=== PATIENT | female | born 1985 | race Hispanic/Latino ===

== ENCOUNTER 2017-06-27 13:19 | Outpatient (CLI) | payer OTHER ==
--- NOTE | 2017-06-27 19:33 | ULT ---
OB ULTRASOUND: Date: 06-27-17 History: Evaluate size and dates. FINDINGS: There is a single intrauterine gestation in breech presentation. Cardiac doppler demonstrates h eart tones with a heart rate of 130 beats/minute. The placenta is located anteriorly without ev idence of placenta previa. Subjectively, there is a normal amount of amniotic fluid. There is also a normal amniotic fluid index measuring 15.2 cm. Cervical length measure 3.3 cm as measured on transabd ominal imaging. Measurements: BPD 5.27 cm 22 weeks HC 20.37 cm 22 weeks 3 days AC 16.22 cm 21 weeks 2 days FL 3.64 cm 21 weeks 4 days The estimated gestational age by ultrasound is 21 weeks 6 days with an ROB on 11-01-17. Gestational age by last menstrual period is 22 weeks. The estimated weight by ultrasound is 432 grams (15 ounces). This represents 23 percentile for weight. The cerebellum, visualized portions of the spine, four chamber heart, stomach, bilateral kidney s, urinary bladder, and cord insertion demonstrate a normal sonographic appearance. A 3 vessel cord i s not visualized on this exam although there is question of a 3 vessel cord. No definite anomal ies are seen. IMPRESSION: 1. Single intrauterine gestation in breech presentation with tones documented. 2. Estimated gestational age by ultrasound is 21 weeks 6 days, ROB on 11-01-17. 3. Estimated weight is 432 grams (15 ounces). 4. Amniotic fluid index is 15.7 cm. POS: [facility]
== END 2017-06-27 13:20 | disposition home or self-care (01) ==
LOC: SCSULT 13:19
PROVIDERS: ATTEND Nurse Practitioner
DX: Z34.02 Encounter for supervision of normal first pregnancy, second trimester (principal); O32.1XX0 Maternal care for breech presentation, not applicable or unspecified; Z3A.21 21 weeks gestation of pregnancy
CPT/HCPCS: 76805

== ENCOUNTER 2017-07-10 18:54 | Observation (INO) | payer OTHER ==
[2017-07-10 19:25] VITALS: BMI 26.6
[2017-07-10] MEDS ORDERED: Ondansetron HCl/PF 4 MG/2 ML Vial ONE (19:57)
[2017-07-10 20:21] LABS: #Eosinphils 0.1 thou/uL (0.0-0.7); #Lymphocytes 1.2 thou/uL (1.20-3.40); #Monocytes 0.3 thou/uL (0.11-0.59); #Neutrophils 10.9 thou/uL (1.40-6.50); %Basophils 0.3 % (0.0-1.0); %Eosinophils 0.4 % (0.0-10.0); %Lymphocytes 9.7 % (21.0-51.0); %Monocytes 2.7 % (0.0-10.0); %Neutrophils 86.9 % (42.0-75.0); Mean Corpuscular HGB CONC 33.6 g/dL (32.0-36.0); Mean Corpuscular Hemoglobin 30.8 pg (27.0-31.0); Mean Corpuscular Volume 91.8 fl (81.0-99.0); Mean Platelet Volume 8.2 fL (7.4-10.4); Platelet Count 233 thou/uL (130-400); White Blood Cell (WBC) Count 12.5 thou/uL (4.8-10.8)
[2017-07-10] MEDS ORDERED: Ondansetron HCl/PF 4 MG/2 ML Vial IVP SCH (20:30)
[2017-07-10 20:41] LABS: ALT (SGPT) 22 U/L (8-55); AST (SGOT) 22 U/L (5-34); Albumin 3.7 g/dL (3.5-5.0); Alkaline Phosphatase 84 U/L (40-150); Anion Gap 17 mmol/L (10-20); BUN (Urea Nitrogen) 8 mg/dL (7.0-18.7); Bilirubin, Total 0.3 mg/dL (0.2-1.2); Calc. Creatinine Clearance 155 mL/min (70-130); Calcium 9.2 mg/dL (7.8-10.44); Carbon Dioxide 20 mmol/L (22-29); Chloride 103 mmol/L (98-107); Estimated GFR-MDRD Greater than 90; Globulin 3.5 g/dL (2.4-3.5); Glucose 98 mg/dL (70-105); Lipase 18 U/L (8-78); Potassium 3.9 mmol/L (3.5-5.1); Protein, Total 7.2 g/dL (6.0-8.3); Sodium 136 mmol/L (136-145)
[2017-07-10] MEDS ORDERED: Ondansetron HCl/PF 4 MG/2 ML Vial IVP PRN (21:33)
[2017-07-10] MEDS ORDERED: Lactated Ringer's 1,000 ML IV SCH (22:00)
--- NOTE | 2017-07-10 22:54 | ULT ---
GALLBLADDER ULTRASOUND: Date: 07/10/17 INDICATION: Pain. FINDINGS: There is evidence of cholelithiasis and a distended gallbladder. The gallbladder wall is within carlton l limits of size. Common duct is mildly prominent at 6.0 mm. Incidental note of mild prominence of ri ght renal collecting system. Prado's sign reported as positive. No focal hepatic lesion. IMPRESSION: 1. Cholelithiasis. 2. Mild prominence of right renal collecting system. POS: [facility]
[2017-07-11 05:56] LABS: #Lymphocytes 1.7 thou/uL (1.20-3.40); #Monocytes 0.4 thou/uL (0.11-0.59); #Neutrophils 10.1 thou/uL (1.40-6.50); %Basophils 0.1 % (0.0-1.0); %Eosinophils 0.1 % (0.0-10.0); %Lymphocytes 13.7 % (21.0-51.0); %Monocytes 3.1 % (0.0-10.0); %Neutrophils 83.1 % (42.0-75.0); Hemoglobin 10.1 g/dL (12.0-16.0); Mean Corpuscular HGB CONC 32.9 g/dL (32.0-36.0); Mean Corpuscular Hemoglobin 30.2 pg (27.0-31.0); Mean Corpuscular Volume 91.7 fl (81.0-99.0); Mean Platelet Volume 7.8 fL (7.4-10.4); Platelet Count 231 thou/uL (130-400); RBC Distribution Width 12.8 % (11.5-14.5); Red Blood Cell (RBC) Count 3.35 mill/uL (4.20-5.40); White Blood Cell (WBC) Count 12.1 thou/uL (4.8-10.8)
[2017-07-11 06:18] LABS: ALT (SGPT) 20 U/L (8-55); AST (SGOT) 18 U/L (5-34); Alkaline Phosphatase 66 U/L (40-150); Anion Gap 11 mmol/L (10-20); BUN (Urea Nitrogen) 6 mg/dL (7.0-18.7); Bilirubin, Total 0.5 mg/dL (0.2-1.2); Calc. Creatinine Clearance 163 mL/min (70-130); Calcium 8.8 mg/dL (7.8-10.44); Carbon Dioxide 24 mmol/L (22-29); Chloride 106 mmol/L (98-107); Estimated GFR-MDRD Greater than 90; Globulin 2.9 g/dL (2.4-3.5); Glucose 116 mg/dL (70-105); Lipase 8 U/L (8-78); Potassium 3.5 mmol/L (3.5-5.1); Protein, Total 5.9 g/dL (6.0-8.3); Sodium 137 mmol/L (136-145)
--- NOTE | 2017-07-11 08:09 | HP ---
DATE OF ENCOUNTER: 07/10/2017 PRIMARY OB: Reyes Smith M.D. CHIEF COMPLAINT: Abdominal pain. HISTORY OF PRESENT ILLNESS: The patient is a 31-year-old G1, P0 female with an intrauterine pregnanc y at 23 weeks and 6 days who is presenting to Labor and Delivery today after experiencing onset of ac [place] abdominal pain at 2:00. She was evaluated last month with a similar episode that was very transi ent and was diagnosed with gallstones. The patient reports that she had 2 beef tacos for lunch, prio r to onset of this abdominal pain, which is worse in the last couple of hours. The patient has vomit ed about 4 times. She denies any fever, any recent illness, headache, chest pain, shortness of breat h. She denies uterine contractions, vaginal bleeding, or leakage of fluid. PAST MEDICAL HISTORY: Significant for gallstones. PAST SURGICAL HISTORY: Negative. OBSTETRIC HISTORY: This is her first . ALLERGIES: No known drug allergies. OBSTETRICAL LABORATORY DATA: Unavailable. REVIEW OF SYSTEMS: Per HPI. PHYSICAL EXAMINATION: VITAL SIGNS: Blood pressure is 109/70, heart rate of 80, temperature 98.4. She is in significant pa in. GENERAL: She is alert and oriented, cooperative and pleasant to interact with. She appears to be in minimal to moderate distress. LUNGS: Clear to auscultation. HEART: Regular rate and rhythm. ABDOMEN: Soft. She does have tenderness to palpation in the epigastric region and the right upper q uadrant area. EXTREMITIES: Nontender, nonedematous. GENITOURINARY: Has been deferred. Heart tones are dopplered in the 130s. LABORATORY DATA: Shows a white count of 12.5, hemoglobin 12, hematocrit 35.7, platelets of 233,000. Sodium is 136, potassium of 3.9, BUN is 8, creatinine is 0.58, glucose is 98, total bilirubin is 0.3 . LFTs are within normal limits. Amylase and lipase are within normal limits. Amylase 49, lipase i s 18. A right upper quadrant ultrasound confirms the gallstones and sludge and describes a mildly pr ominent common bile duct at 6 mm on the final report, however, verbally was reported having a common bile duct at 7.5 mm. ASSESSMENT AND PLAN: The patient is a 31-year-old female with an intrauterine at 23 weeks and known gallstones with pain. She has been given IV fluids and Zofran for her nausea and vomiting. She has been given 2 mg of Stadol IV, which has helped her sleep and has much better pain control. All of her labs are within normal limits and has a mildly prominent common bile duct. I have talked to General Surgery by phone and have come up have admitted the patient in observation, repeat her la b work in the morning to see if anything develops suggesting obstruction. We will also evaluate her for pain. Her primary OB, Dr. Smith has been notified and will be here in the morning to see her Dr. Jeffrey was asked to be called if her pain persists or if she develops abnormal lab findings.
[2017-07-11 08:44] VITALS: BP 111/69; TEMP 98.4
--- NOTE | 2017-07-12 11:32 | DIS ---
DATE OF ADMISSION: 07/10/2017 DATE OF DISCHARGE: 07/11/2017 PRINCIPAL DIAGNOSES: 1. Cholelithiasis with biliary colic. 2. 23+ weeks' . OPERATIVE PROCEDURES: None. CONSULTANTS: General surgery. BRIEF HISTORY: This is a 31-year-old female G1, P0 at 23 weeks 6 days with acute onset righ t upper quadrant pain radiates to the epigastrium to the right flank with vomiting and nausea, no fev er, no jaundice, no bleeding. PHYSICAL EXAMINATION: On admission, afebrile/VS: Stable with right upper quadrant tenderness in the epigastric area. HOSPITAL COURSE: Ms. Chow was admitted to where she was observed overnight. She was hydrated, given IV analgesics for her pain. She was started on clear liquids the next day, which she tolerated without difficulty and her pain resolved. She was discharged in good condition on 017. DISCHARGE INSTRUCTIONS: 1. Activity: As tolerated. 2. Diet, low fat. 3. Follow up in 1 week at [facility] with Dr. Smith. ER precautions reviewed for fever, j aundice, intractable vomiting, and worsening right upper quadrant abdominal pain.
== END 2017-07-11 08:40 | disposition home or self-care (01) ==
LOC: L&D/OP 18:54 → 3SW 21:31
PROVIDERS: ADMIT Family Medicine; ATTEND Family Medicine
DX: O99.612 Diseases of the digestive system complicating pregnancy, second trimester (principal); K80.70 Calculus of gallbladder and bile duct without cholecystitis without obstruction; Z3A.23 23 weeks gestation of pregnancy
CPT/HCPCS: 36415; 76705; 80053; 82150; 83690; 85025; 96360; 96361; G0378; J0595; J2405

== ENCOUNTER 2019-06-13 05:41 | Inpatient (IN) | payer OTHER, SELFPAY ==
[2019-06-13 06:45] VITALS: TEMP 98.5; BMI 34.3
[2019-06-13] MEDS ORDERED: HYDROcodone/Acetaminophen 5/325 mg Tablet PO PRN (07:56)
[2019-06-13] MEDS ORDERED: NS / Oxytocin 40 units/1000ml 1,000 ML IV PRN (07:56)
[2019-06-13] MEDS ORDERED: Methylergonovine 0.2 MG/ML VIAL IM PRN (07:56)
[2019-06-13] MEDS ORDERED: hydrALAZINE 20 MG/ML VIAL SLOW IVP PRN (07:56)
[2019-06-13] MEDS ORDERED: Diphenoxylate HCl/Atropine Tablet PO PRN (07:56)
[2019-06-13] MEDS ORDERED: Ibuprofen 800 MG TAB PO PRN (07:56)
[2019-06-13] MEDS ORDERED: Carboprost 250 MCG/ML AMP IM PRN (07:56)
[2019-06-13] MEDS ORDERED: Promethazine HCl 25 MG/ML VIAL IM PRN ×2 (07:56→21:41)
[2019-06-13] MEDS ORDERED: Misoprostol 200 MCG TAB PR PRN (07:56)
[2019-06-13] MEDS ORDERED: Ondansetron PF 4 MG/2 ML Vial IVP PRN ×2 (07:56→21:41)
[2019-06-13] MEDS ORDERED: Lidocaine 1% (PF) 30 ML VIAL SC PRN (07:56)
[2019-06-13] MEDS ORDERED: Misoprostol 100 MCG TAB PO SCH (08:00)
[2019-06-13] MEDS: Lactated Ringer's 1,000 ML IV SCH ×3 (08:38→21:40)
[2019-06-13] MEDS: Misoprostol 200 MCG TAB PO SCH ×4 (08:39→22:05)
[2019-06-13 09:06] LABS: Hemoglobin 11.5 g/dL (12.0-16.0); Mean Corpuscular HGB CONC 33.4 g/dL (32.0-36.0); Mean Corpuscular Hemoglobin 30.3 pg (27.0-31.0); Mean Corpuscular Volume 90.7 fL (78.0-98.0); Mean Platelet Volume 9.3 fL (7.4-10.4); Platelet Count 223 thou/uL (130-400); RBC Distribution Width 12.1 % (11.5-14.5); Red Blood Cell (RBC) Count 3.79 mill/uL (4.20-5.40); White Blood Cell (WBC) Count 8.3 thou/uL (4.8-10.8)
[2019-06-13 09:47] LABS: Syphilis Antibody Nonreactive (Nonreactive); Syphilis Antibody Index 0.06 S/CO (<1.00 Non-Reactive)
[2019-06-13 09:48] LABS: HBSAg Index 0.22 S/CO (0-0.99); Hep B Surf Ag Non-Reactive S/CO (NonReactive)
[2019-06-13] MEDS: Butorphanol Tartrate 1 MG/ML VIAL SLOW IVP PRN ×2 (13:13→17:02)
[2019-06-13] MEDS ORDERED: Fentanyl 4 mcg/Bup 0.1% Cadd 100 ML ONE (20:10)
[2019-06-13] MEDS ORDERED: diphenhydrAMINE 50 MG/ML VIAL IVP PRN (21:41)
[2019-06-13] MEDS ORDERED: Acetaminophen 325 MG TAB PO PRN (21:41)
[2019-06-13] MEDS ORDERED: Lactated Ringer's 500 ML IV PRN (21:41)
[2019-06-13] MEDS ORDERED: Naloxone HCl 0.4 mg/ml Vial IVP PRN ×2 (21:41)
[2019-06-13] MEDS ORDERED: ePHEDrine/0.9% NaCl/PF SYRINGE 50 mg/10 ml SLOW IVP PRN (21:41)
[2019-06-13] MEDS ORDERED: Communication Order-Pharmacy FS SCH (21:45)
[2019-06-13] MEDS ORDERED: Fentanyl 4 mcg/Bupivacaine 0.1% Cassette 100 ML EPIDURAL SCH (21:45)
[2019-06-14] MEDS: Misoprostol 200 MCG TAB PO SCH (02:13)
[2019-06-14] MEDS ORDERED: Fentanyl 4 mcg/Bup 0.1% Cadd 100 ML ONE (04:44)
[2019-06-14] MEDS ORDERED: Misoprostol 200 MCG TAB ONE (07:19)
[2019-06-14] MEDS ORDERED: Acetaminophen 500 MG TAB PO SCH (08:30)
[2019-06-14] MEDS ORDERED: Docusate Calcium (SURFAK) 240 MG CAP PO SCH (09:00)
[2019-06-14] MEDS ORDERED: diphenhydrAMINE 25 MG CAP PO PRN (09:13)
[2019-06-14] MEDS ORDERED: Milk Of Magnesia 30 ML UDCUP PO PRN (09:13)
[2019-06-14] MEDS ORDERED: Ondansetron PF 4 MG/2 ML Vial IVP PRN (09:13)
[2019-06-14] MEDS ORDERED: HYDROcodone/Acetaminophen 5/325 mg Tablet PO PRN ×2 (09:13)
[2019-06-14] MEDS ORDERED: hydrALAZINE 20 MG/ML VIAL SLOW IVP PRN (09:13)
[2019-06-14] MEDS ORDERED: NS / Oxytocin 40 units/1000ml 1,000 ML IV SCH (09:13)
[2019-06-14] MEDS ORDERED: Adacel (T-DAP) 0.5 ML SYRINGE IM ONE (09:13)
[2019-06-14] MEDS ORDERED: Bisacodyl 10 MG SUPP PR PRN (09:13)
[2019-06-14] MEDS ORDERED: Ibuprofen 800 MG TAB PO SCH (14:00)
[2019-06-14] MEDS ORDERED: Ferrous Sulfate 325 MG TAB PO SCH (17:00)
== END 2019-06-14 18:30 | disposition home or self-care (01) | DRG 807 ==
LOC: L&D 05:41
PROVIDERS: ADMIT Family Medicine; ATTEND Family Medicine
PROC: 10E0XZZ Delivery of Products of Conception, External Approach (ICD-10-PCS; principal; 2019-06-13)
PROC: 3E0P7VZ Introduction of Hormone into Female Reproductive, Via Natural or Artificial Opening (ICD-10-PCS; 2019-06-13)
DX: O36.4XX0 Maternal care for intrauterine death, not applicable or unspecified (principal); Z37.1 Single stillbirth; Z3A.23 23 weeks gestation of pregnancy
CPT/HCPCS: 36415; 76815; 85027; 86780; 86850; 86900; 86901; 87340; J0595

== ENCOUNTER 2020-02-25 08:37 | Outpatient (CLI) | payer OTHER ==
--- NOTE | 2020-02-25 09:50 | ULT ---
OBSTETRICAL ULTRASOUND: DATE: 02/25/2020. COMPARISON: None. HISTORY: A 34-year-old female undergoing evaluation for size, dates, and anatomy. TECHNIQUE: Multiplanar reinoso scale sonographic imaging of the gravid uterus obtained. FINDINGS: Cervical length is approximately 3.7 cm. The placenta is located posteriorly and demonstrated no greta dence for previa or abruption. presentation is transverse with head to maternal right. The 4- chamber heart view appears unremarkable. heart rate is 144 b.p.m. stomach, bladder, umbilical cord, and umbilical cord insertion, intracranial contents, nose/lip s, and spine appear unremarkable as do the kidneys. Amniotic fluid index is 9.6 cm. biometry: BPD 4.9 cm, 20 weeks 6 days HC 18.0 cm, 20 weeks 4 days AC 15.3 cm, 20 weeks 4 days FL 3.3 cm, 20 weeks 2 days Average based on ultrasound is 20 weeks 4 days with estimated date of delivery on 07/10/2020. Estima julian weight 351 gm +/- 51 gm (36th percentile). IMPRESSION: Intrauterine gestation as detailed above. POS: [facility]
== END 2020-02-25 08:38 | disposition home or self-care (01) ==
LOC: BICULT 08:37
PROVIDERS: ATTEND Family Medicine
DX: O09.522 Supervision of elderly multigravida, second trimester (principal); Z3A.20 20 weeks gestation of pregnancy
CPT/HCPCS: 76805

== ENCOUNTER 2020-07-03 08:36 | Outpatient (CLI) | payer OTHER ==
[2020-07-03 16:38] LABS: SARS-CoV-2 MS2 Positive; SARS-CoV-2 N Gene Negative; SARS-CoV-2 S Gene Negative; SARS-CoV-2 by NAA Not Detected (NotDetected); SARS-CoV-2 orf1ab Negative
== END 2020-07-03 08:37 | disposition home or self-care (01) ==
LOC: LABBT 08:36
PROVIDERS: ATTEND Family Medicine
DX: Z20.828 Contact with and (suspected) exposure to other viral communicable diseases (principal)
CPT/HCPCS: 87635; U0003

== ENCOUNTER 2020-07-05 11:51 | Inpatient (IN) | payer OTHER, SELFPAY ==
[2020-07-05 12:33] VITALS: BMI 29.5
[2020-07-05] MEDS ORDERED: hydrALAZINE 20 MG/ML VIAL SLOW IVP PRN ×2 (13:06→14:53)
--- NOTE | 2020-07-05 13:08 | PDOC.LDHP ---
Labor and Delivery H&P Chief complaint: contractions HPI: 34yo presents at 38.5 for contractions. Started this morning around 0400. Initially q20 minutes but got as close as 5 minutes apart. Describes them as painful and to her lower abdomen. Denies any vaginal bleeding, discharge, LOF, decreased FM, dysuria, or recent illness. Current gestational age (weeks): 38 (5) Due date: 07/14/20 Dating criteria: last menstrual period, first trimester ultrasound Grav: 3 Para: 2 (1101) OB History Details: 1st: LTCs for failure to progress, GDM 2nd: DUI @ 26 weeks, delivered vaginally Current complications: gestational diabetes (well controlled with diet) Abnormal US findings: No Past Medical History: None Current medications: pre- vitamins Previous surgical history: low tranverse CS Allergies/Adverse Reactions: Allergies Allergy/AdvReac Type Severity Reaction Status Date / Time No Known Allergies Allergy Verified 07/05/20 12:27 Social history: none - Physical Exam Vital signs reviewed and normal: yes General: NAD Heart: RRR Lungs: nonlabored breathing Abdomen: gravid Extremeties: no edema FHT: category 1, variability present [place] contractions every: 2-5 - Vaginal Exam cm dilated: 1 Effacement: 75% Station: -2 - OB Labs Blood type: B RH: positive Antibody Screen: negative HIV: negative RPR: negative HEPSAg: negative 1 hour GCT: positive (173) 3 hour GTT: 78, 238, 208, 199 GBS: negative Urine drug screen: negative Rubella: immune - Plan -: Term - Labor R/O 2/2 Contractions - pt desires TOLAC if able - initial SVE /-2 (reports she was closed 5 days ago in clinic) - Cxns q 2-5 min, painful - No signs of SROM Plan: Will obs patient for 2 hours. Watch contraction pattern and assess for cervical change. Dispo pending subsequent findings.
[2020-07-05] MEDS ORDERED: Carboprost 250 MCG/ML AMP IM PRN (14:53)
[2020-07-05] MEDS ORDERED: NS / Oxytocin 40 units/1000ml 1,000 ML IV PRN (14:53)
[2020-07-05] MEDS ORDERED: Ondansetron PF 4 MG/2 ML Vial IVP PRN ×2 (14:53→17:40)
[2020-07-05] MEDS ORDERED: Promethazine HCl 25 MG/ML VIAL IM PRN ×2 (14:53→17:40)
[2020-07-05] MEDS ORDERED: HYDROcodone/Acetaminophen 5/325 mg Tablet PO PRN (14:53)
[2020-07-05] MEDS ORDERED: Diphenoxylate HCl/Atropine Tablet PO PRN (14:53)
[2020-07-05] MEDS ORDERED: Lidocaine 1% (PF) 30 ML VIAL SC PRN (14:53)
[2020-07-05] MEDS ORDERED: Methylergonovine 0.2 MG/ML VIAL IM PRN (14:53)
[2020-07-05] MEDS ORDERED: Ibuprofen 800 MG TAB PO PRN (14:53)
[2020-07-05] MEDS ORDERED: Penicillin G Potassium 5 MILL.UNITS in Sodium Chloride 0.9% 100 ML IVPB SCH (15:00)
--- NOTE | 2020-07-05 15:00 | PDOC.BPN ---
- Brief Progress Note Encounter Date: 07/05/20 Encounter Time: 14:45 Repeat SVE Plan: Pt continuing to contract regularly and making active cervical change. Will admit to L&D for latent labor and expectant management.
[2020-07-05] MEDS: Lactated Ringer's 1,000 ML IV SCH ×3 (15:30→23:35)
[2020-07-05 15:39] LABS: Hemoglobin 12.3 g/dL (12.0-16.0); Mean Corpuscular HGB CONC 34.4 g/dL (32.0-36.0); Mean Corpuscular Hemoglobin 30.9 pg (27.0-31.0); Mean Corpuscular Volume 89.7 fL (78.0-98.0); Mean Platelet Volume 10.9 fL (7.4-10.4); Platelet Count 179 thou/uL (130-400); RBC Distribution Width 13.3 % (11.5-14.5); White Blood Cell (WBC) Count 9.4 thou/uL (4.8-10.8)
[2020-07-05] MEDS ORDERED: DISCONTINUE ALL PREVIOUS NARCOTICS FS SCH (15:45)
[2020-07-05] MEDS ORDERED: Bupivacaine 0.5% 20 ML, fentaNYL Citrate/PF 400 MCG in Sodium Chloride 0.9% 72 ML EPIDURAL SCH (15:45)
[2020-07-05 16:27] LABS: HBSAg Index 0.12 S/CO (0-0.99); Hep B Surf Ag Non-Reactive S/CO (NonReactive); Syphilis Antibody Nonreactive (Nonreactive); Syphilis Antibody Index 0.06 S/CO (<1.00 Non-Reactive)
[2020-07-05] MEDS: Fentanyl 4 mcg/Bupivacaine 0.1% Cassette 100 ML EPIDURAL SCH (16:38)
--- NOTE | 2020-07-05 17:21 | PDOC.BPN ---
- Brief Progress Note Encounter Date: 07/05/20 Encounter Time: 17:17 Epidural placed AROM with thin, clear, mec IUPC and FSE placed, capturing well SVE remains /-2 FHT remain Cat 1
[2020-07-05] MEDS ORDERED: Acetaminophen 325 MG TAB PO PRN (17:40)
[2020-07-05] MEDS ORDERED: ePHEDrine 50 MG/ML VIAL SLOW IVP PRN (17:40)
[2020-07-05] MEDS ORDERED: diphenhydrAMINE 50 MG/ML VIAL IVP PRN (17:40)
[2020-07-05] MEDS ORDERED: Lactated Ringer's 500 ML IV PRN (17:40)
[2020-07-05] MEDS ORDERED: Naloxone HCl 0.4 mg/ml Vial IVP PRN ×2 (17:40)
[2020-07-05] MEDS ORDERED: Communication Order-Pharmacy FS SCH (17:45)
[2020-07-05] MEDS ORDERED: Penicillin G 2.5 MILL.units 2.5 MILL.UNITS in Premix Bag 1 BAG IVPB SCH (19:00)
[2020-07-06] MEDS: Fentanyl 4 mcg/Bupivacaine 0.1% Cassette 100 ML EPIDURAL SCH (00:05)
[2020-07-06] MEDS ORDERED: HYDROcodone/Acetaminophen 5/325 mg Tablet PO PRN ×2 (02:26)
[2020-07-06] MEDS ORDERED: Lanolin Ointment 7 GM TUBE TOP PRN (02:26)
[2020-07-06] MEDS ORDERED: Ondansetron PF 4 MG/2 ML Vial IVP PRN (02:26)
[2020-07-06] MEDS ORDERED: NS / Oxytocin 40 units/1000ml 1,000 ML IV SCH (02:26)
[2020-07-06] MEDS ORDERED: Bisacodyl 10 MG SUPP PR PRN (02:26)
[2020-07-06] MEDS ORDERED: Benzocaine-Menthol 82.5 ML CAN TOP PRN (02:26)
[2020-07-06] MEDS ORDERED: Milk Of Magnesia 30 ML UDCUP PO PRN (02:26)
[2020-07-06] MEDS ORDERED: Promethazine HCl 25 MG/ML VIAL IM PRN (02:26)
[2020-07-06] MEDS ORDERED: hydrALAZINE 20 MG/ML VIAL SLOW IVP PRN (02:26)
[2020-07-06] MEDS ORDERED: diphenhydrAMINE 25 MG CAP PO PRN (02:26)
[2020-07-06] MEDS: Ibuprofen 800 MG TAB PO SCH ×3 (05:39→21:24)
[2020-07-06] MEDS: Ferrous Sulfate 325 MG TAB PO SCH ×2 (07:57→14:45)
[2020-07-06] MEDS ORDERED: Adacel (T-DAP) 0.5 ML SYRINGE IM ONE (09:00)
[2020-07-06] MEDS: Prenatal Vitamin 1 TAB PO SCH (09:29)
[2020-07-06] MEDS: Docusate Calcium (SURFAK) 240 MG CAP PO SCH ×2 (09:29→21:25)
[2020-07-07] MEDS: Ibuprofen 800 MG TAB PO SCH ×2 (04:50→13:45)
[2020-07-07 08:08] VITALS: BP 98/55; TEMP 98.4
[2020-07-07] MEDS: Prenatal Vitamin 1 TAB PO SCH (08:31)
[2020-07-07] MEDS: Ferrous Sulfate 325 MG TAB PO SCH (08:31)
[2020-07-07] MEDS: Docusate Calcium (SURFAK) 240 MG CAP PO SCH (08:31)
== END 2020-07-07 14:50 | disposition home or self-care (01) | DRG 807 ==
LOC: L&D/OP 11:51 → L&D 14:53 → 3SW 07-06 03:37
PROVIDERS: ADMIT Family Medicine; ATTEND Family Medicine
PROC: 10H07YZ Insertion of Other Device into Products of Conception, Via Natural or Artificial Opening (ICD-10-PCS; 2020-07-05)
PROC: 4A1HXCZ Monitoring of Products of Conception, Cardiac Rate, External Approach (ICD-10-PCS; 2020-07-05)
PROC: 10907ZC Drainage of Amniotic Fluid, Therapeutic from Products of Conception, Via Natural or Artificial Opening (ICD-10-PCS; 2020-07-05)
PROC: 10E0XZZ Delivery of Products of Conception, External Approach (ICD-10-PCS; principal; 2020-07-06)
PROC: 0W8NXZZ Division of Female Perineum, External Approach (ICD-10-PCS; 2020-07-06)
DX: O24.420 Gestational diabetes mellitus in childbirth, diet controlled (principal); Z37.0 Single live birth; Z3A.38 38 weeks gestation of pregnancy; O34.211 Maternal care for low transverse scar from previous cesarean delivery; Z20.828 Contact with and (suspected) exposure to other viral communicable diseases; O77.0 Labor and delivery complicated by meconium in amniotic fluid
CPT/HCPCS: 36415; 36416; 51702; 85027; 86780; 86850; 86900; 86901; 87340; 99285